=== PATIENT | male | born 1980 | race Two or more races ===

== ENCOUNTER 2017-01-02 11:22 | Emergency (ER) | payer MEDICAID ==
[~2017-01-02] VITALS: Ht 175.3 cm; Wt 88.8 kg
[2017-01-02 11:32] VITALS: BP 133/94
== END 2017-01-02 16:37 | disposition home or self-care (01) ==
LOC: ER 12:11
DX: H10.9 Unspecified conjunctivitis (principal); R05 Cough; Z90.49 Acquired absence of other specified parts of digestive tract
CPT/HCPCS: 99283

== ENCOUNTER 2020-03-09 12:52 | Emergency (ER) | payer MEDICAID ==
[~2020-03-09] VITALS: Ht 172.7 cm; Wt 90.0 kg
[2020-03-09] MEDS ORDERED: ACETAMINOPHEN 325MG TABLET PO ONE (13:15)
[2020-03-09 13:36] LABS: BASOPHILS % 0.4 % (0.0-2.0); EOSINOPHILS % 0.2 % (0.0-5.0); HEMATOCRIT. 41.2 % (42.0-52.0); HEMOGLOBIN. 13.8 g/dL (14.0-18.0); LYMPHOCYTES % 15.6 % (20.0-50.0); MEAN CORPUSCULAR VOLUME 80.4 fL (80.0-94.0); MEAN PLATELET VOLUME 8.1 fl (7.4-10.4); MONOCYTES % 6.6 % (2.0-8.0); NEUTROPHILS % 77.2 % (40.0-76.0); PLATELET 336 x1000/uL (130-400); RED BLOOD CELL COUNT 5.12 mill/uL (4.7-6.1); RED CELL DISTRIBUTION WIDTH 13.1 % (11.6-14.6)
[2020-03-09 13:44] LABS: CHLORIDE 107 mEq/L (98-107)
[2020-03-09 13:46] LABS: PARTIAL THROMBOPLASTIN TIME 26.1 sec (23.4-31.0); PROTHROMBIN TIME 11.1 sec (9.6-11.0)
[2020-03-09 13:48] LABS: ETHANOL BLOOD < 10 mg/dL
[2020-03-09] MEDS ORDERED: LIDOCAINE HCL/EPINEPHRINE 1%-EPI 1:100,000 30 ML VIAL INFIL ONE (14:45)
[2020-03-09] MEDS ORDERED: LIDOCAINE HCL/EPINEPHRINE 1%-EPI 1:100,000 20 ML VIAL INFIL NR (16:00)
[2020-03-09 16:10] VITALS: BP 147/89
== END 2020-03-09 16:14 | disposition home or self-care (01) ==
LOC: ER 12:52
DX: S01.01XA Laceration without foreign body of scalp, initial encounter (principal); Z90.49 Acquired absence of other specified parts of digestive tract; X99.9XXA Assault by unspecified sharp object, initial encounter; Y93.89 Activity, other specified; Y92.488 Other paved roadways as the place of occurrence of the external cause
CPT/HCPCS: 12013; 36415; 80053; 80320; 85025; 93005; 99285; G0480